=== PATIENT | male | born 1980 | race Caucasian/White ===

== ENCOUNTER 2018-11-05 05:12 | Day surgery (SDC) | payer OTHER ==
[~2018-11-05] VITALS: Ht 180.3 cm; Wt 89.8 kg
[2018-11-05] MEDS ORDERED: NAPROSYN500 MG PO (06:05)
[2018-11-05] MEDS ORDERED: BAYER CHEWABLE81 MG PO (06:05)
[2018-11-05] MEDS ORDERED: LIPITOR40 MG (06:06)
[2018-11-05] MEDS ORDERED: COREG 3.1253.125 MG PO (06:07)
[2018-11-05] MEDS ORDERED: CYMBALTA20 MG PO (06:07)
[2018-11-05] MEDS ORDERED: KEPPRA1000 MG PO (06:08)
[2018-11-05 06:33] LABS: MCH 30.4 pg (26.0-34.0); MCHC 34.2 g/dL (31.0-37.0); MCV 88.8 fL (80.0-100.0); MEAN PLATELET VOLUME 9.2 fL (7.4-10.4); PLATELET COUNT 237 10x3/uL (130-400); RBC 4.28 10x6/uL (4.20-6.10); RDW 14.5 % (11.5-14.5); WBC 5.8 10x3/uL (4.8-10.8)
[2018-11-05 06:41] LABS: CALC OSMOLALITY 286 mosm/kg (275-300); CALCIUM 8.2 mg/dL (8.5-10.1); CARBON DIOXIDE 23.1 mmol/L (21.0-32.0); CHLORIDE - SERUM 109 mmol/L (98-107); CREATININE - SERUM 0.7 mg/dL (0.6-1.3); GLUCOSE 89 mg/dL (74-106); POTASSIUM - SERUM 3.6 mmol/L (3.5-5.1); SODIUM 145 mmol/L (136-145); UREA NITROGEN 10 mg/dL (7-18); eGFR NON AFRICAN AMERICAN > 90 mL/min (90-120)
[2018-11-05 06:45] VITALS: BP 165/106; Ht 180.3 cm; Wt 89.8 kg
[2018-11-05 09:13] LABS: EOSINOPHILS 3 % (0-7); LYMPHOCYTES 50 % (15-50); MONOCYTES 10 % (2-11); NEUTROPHILS 33 % (40-80); PLATELET ESTIMATE NORMAL
[2018-11-05 09:14] LABS: ROULEAUX OCC
--- NOTE | 2018-11-05 10:32 | NUR ---
1010 RIGHT ARM IN SLING.
--- NOTE | 2018-11-05 10:58 | OP ---
PATIENT NAME: ZANDER BELLO MEDICAL RECORD: [id number] :76 LOCATION:[facility] AD[facility]ION DATE: SURGEON: ZANDER DAWSON DO DATE OF OPERATION: 11/05/2018 PROCEDURE PERFORMED: Right shoulder arthroscopy with subacromial decompression, distal clavicle excision, biceps tenodesis, rotator cuff repair, and capsular shift. PREOPERATIVE DIAGNOSES: Right shoulder instability, partial rotator cuff tear, SLAP tear, subacromial impingement, AC joint arthritis. POSTOPERATIVE DIAGNOSES: Right shoulder instability, partial rotator cuff tear, SLAP tear, subacromial impingement, AC joint arthritis. INDICATIONS: Mr. Bello is a 38-year-old inmate who said his right shoulder keeps going "in and out." He said it comes out easily anything overhead or reaches back. He had an MRI done, which did show a partial rotator cuff tear and a SLAP tear. Due to his history of it going in and out, I told him I would do a capsular shift, although not a big one if I did not see that there was a Bankart lesion, soft tissue or bony. There was no obvious one on the MRI, but I would look at his rotator cuff. If it were more than 50% torn, I would repair it as well as do a biceps tenodesis and distal clavicle excision and subacromial decompression. He is aware of the risks including infection, bleeding, continued pain, continued instability, need for further surgery, blood clots, and even and he signed the consent. SURGEON: Zander Dawson DO DESCRIPTION OF PROCEDURE: The patient was given a block by anesthesia in the preoperative area. He was taken to the operative suite, laid in the left lateral decubitus position with an axillary roll and axilla. He was given 900 mg of clindamycin. The right shoulder was then prepped and draped in sterile fashion. Timeout was performed, everyone was in agreement as to the correct side, site, patient and procedure. Once that was completed, the procedure began with insufflating the shoulder joint with an 18-gauge spinal needle through the posterior portal and 60 mL of normal saline. This was then removed. The 11-blade scalpel was used to establish the posterior portal. Trocar was then entered into the shoulder joint. Two anterior portals were then established to pass the labral tape through. The biceps tenodesis was done also noting the SLAP tear as well as the partial articular-sided rotator cuff tear. It was more than 50% torn. The subscapularis looked good and the cartilage looked good and no loose bodies in the inferior gutter. There was no obvious Bankart lesion, but the humerus was subluxed anteriorly. The lasso device was then brought in. I went through the anterior capsule and then through the labrum underneath between the space between the glenoid. This was then fished out through the other portal then labral tape was lassoed in through the lasso. The drill was then brought in through the portal and a hole was drilled for the PushLock. The labral tape was then put on the PushLock and PushLock was entered into the hole that had been drilled pulling up the capsule nicely. The subacromial space was then entered. Decompression was done as well as a distal clavicle excision and acromioplasty. There was no full thickness seen on the bursal side; however, it was more than 50% on the articular side. The scope was then entered back into the articular side into the joint and the tear was marked. The incision was then made over the lateral shoulder where a portal had been established OPERATIVE REPORT [id number] ZANDER BELLO with an 18-gauge spinal needle and 11-blade scalpel and dissection was made down to the tear. The tear was then exposed. A single anchor was used with FiberTape through anteriorly and posteriorly pulling over with a nice repair to a lateral row anchor. This was then cut. I confirmed to have a good repair on it and then attention was drawn to the anterior humerus where an incision was made. Careful dissection was made down to the long head of the biceps tendon. This was removed and whipstitched and then a single button was placed into the humerus and cinched down. I cinched down the long head of the bicep tendon and tied down and then a free needle was used to go back through the tendon and this was tied down on top of that. The excess tendon and suture were cut at that time. The wound was thoroughly irrigated as well as the open rotator cuff repair site. These were then closed with 2-0 Vicryl in inverted interrupted fashion, 4-0 Monocryl ran on the skin and then 4-0 Monocryl in inverted interrupted fashion on the portal sites, the 2 anterior and posterior wounds. Dermabond was then placed on all the incisions and a Telfa and Tegaderm were placed over them. He was awakened and taken to recovery in stable condition. BLOOD LOSS: Minimal. COMPLICATIONS: None. TRANSINT:[id number] Voice Confirmation ID: [id number] DOCUMENT ID: [id number] ZANDER DAWSON DO at 1058 CC: [id number] DICTATION DATE: 11/05/18919 TANK TENDER: 11/05/18947 [id number] [place] [address]
--- NOTE | 2018-11-05 12:13 | NUR ---
1118 UP TO BR WITH MINIMAL ASSISTANCE. VOIDED WITHOUT DIFFICULTY
--- NOTE | 2018-11-05 12:13 | NUR ---
1115 IV DC'D. CATHETER TIP INTACT. NO BLEEDING AT SITE. BANDAID APPLIED.
== END 2018-11-05 11:26 | disposition home or self-care (01) ==
LOC: D.OPS 05:12
PROVIDERS: Anesthesiology; ATTEND Orthopaedic Surgery
DX: M25.311 Other instability, right shoulder (principal); M75.101 Unspecified rotator cuff tear or rupture of right shoulder, not specified as traumatic; S43.431A Superior glenoid labrum lesion of right shoulder, initial encounter; X58.XXXA Exposure to other specified factors, initial encounter; M75.41 Impingement syndrome of right shoulder; M13.811 Other specified arthritis, right shoulder

== ENCOUNTER 2019-08-19 05:32 | Day surgery (SDC) | payer OTHER ==
[~2019-08-19] VITALS: Ht 180.3 cm; Wt 97.5 kg
[~2019-08-19 05:32] MED LIST: BAYER CHEWABLE81 MG PO; COREG 3.1253.125 MG PO; CYMBALTA20 MG PO; KEPPRA1000 MG PO; LIPITOR40 MG; NAPROSYN500 MG PO
[2019-08-19 06:10] VITALS: BP 145/94; Ht 180.3 cm; Wt 97.5 kg
[2019-08-19 06:16] LABS: BASOPHILS 0.3 % (0-2); EOSINOPHILS 3.5 % (0-7); HEMATOCRIT 41.7 % (42.0-54.0); HEMOGLOBIN 14.1 g/dL (13.5-17.5); IMMATURE GRANULOCYTES 0.3 % (0-5); LYMPHOCYTES 34.2 % (15-50); MCH 30.1 pg (26.0-34.0); MCHC 33.8 g/dL (31.0-37.0); MCV 89.1 fL (80.0-100.0); MEAN PLATELET VOLUME 8.9 fL (7.4-10.4); MONOCYTES 5.4 % (2-11); NEUTROPHILS 56.3 % (40-80); PLATELET COUNT 242 10x3/uL (130-400); RBC 4.68 10x6/uL (4.20-6.10); RDW 12.6 % (11.5-14.5); WBC 6.4 10x3/uL (4.8-10.8)
--- NOTE | 2019-08-19 06:21 | NUR ---
dr lee notified and reviewed pt's behavior and assessment results. pt is a low risk per dr lee, dr lee stated to give resources to pt at time of discharge. no further orders at this time. resources reviewed with pt and he verbalized understanding.
[2019-08-19 06:25] LABS: CALC OSMOLALITY 280 mosm/kg (275-300); CALCIUM 8.2 mg/dL (8.5-10.1); CARBON DIOXIDE 23.2 mmol/L (21.0-32.0); CHLORIDE - SERUM 107 mmol/L (98-107); CREATININE - SERUM 1.1 mg/dL (0.6-1.3); GLUCOSE 93 mg/dL (74-106); POTASSIUM - SERUM 3.6 mmol/L (3.5-5.1); SODIUM 141 mmol/L (136-145); UREA NITROGEN 12 mg/dL (7-18); eGFR NON AFRICAN AMERICAN 78 mL/min (90-120)
[2019-08-19 06:48] LABS: APTT 37.2 SECONDS (22.8-39.4); INR 0.92 (0.85-1.17); PROTIME 12.4 SECONDS (11.6-15.0)
[2019-08-19] MEDS ORDERED: COREG25 MG PO (06:51)
[2019-08-19] MEDS ORDERED: NORVASC10 MG PO (06:52)
[2019-08-19] MEDS ORDERED: BUSPAR10 MG PO (06:53)
[2019-08-19] MEDS ORDERED: TOPAMAX50 MG PO (06:54)
[2019-08-19] MEDS ORDERED: PRINIVIL10 MG PO (06:54)
--- NOTE | 2019-08-19 06:57 | NUR ---
PT ARRIVED LATE. NEEDED LAB DRAWS AND XRAY ON ARRIVAL. NEEDED H AND P.
[2019-08-19] MEDS ORDERED: PERCOCET 10-321 EAC1 PO (08:28)
--- NOTE | 2019-08-19 14:51 | NUR ---
1000 IV DC'D. CATHETER TIP INTACT. NO BLEEDING AT SITE. BANDAID APPLIED. DISCHARGE INSTRUCTIONS GIVEN TO PT WHO VOICES UNDERSTANDING OF INSTRUCTIONS. PT NOT AWARE OF FOLLOWUP APPOINTMENT DATE AND TIME. DISCHARGE PACKET GIVEN TO [facility].
--- NOTE | 2019-08-23 07:09 | OP ---
PATIENT NAME: ZANDER BELLO MEDICAL RECORD: [id number] :76 LOCATION:[facility] AD[facility]ION DATE: SURGEON: ZANDER DAWSON DO DATE OF OPERATION: 08/19/2019 PROCEDURE PERFORMED: Right rotator cuff repair. PREOPERATIVE DIAGNOSIS: Right recurrent rotator cuff tear. POSTOPERATIVE DIAGNOSIS: Right recurrent rotator cuff tear. INDICATIONS: Mr. Bello is a 39-year-old inmate who had a right labral repair with a small rotator cuff repair done in October. He said that he was "doing his own therapy and popped his shoulder." We got the MRI with MR arthrogram that showed a recurrent rotator cuff tear of the supraspinatus tendon. He has been dealing with this for quite some time and wanted something done surgically as he had lost strength. He was informed of the risks including infection, bleeding, damage to nerves and vessels, need for further surgery, strict following of the protocol would help him not retear it and that we would be watching him in with close eye due to the fact that he has admitted that it is hard to get regular physical therapy and we hope that he would be able to do that. He was aware of all that and aware of the risks including frozen shoulder, continued pain and he signed the consent. SURGEON: Zander Dawson DO DESCRIPTION OF PROCEDURE: The patient was taken to operative suite. After given a block by anesthesia in the preoperative area, placed in the left lateral decubitus position with right shoulder up. He was then sedated and LMA was placed. He was given 900 mg of clindamycin preoperatively. Right shoulder was then prepped and draped in sterile fashion. Timeout was performed, everyone was in agreeance with the correct side, site, patient and procedure. We then began by inflating the shoulder joint through an 18-gauge spinal needle through the posterior portal with 60 mL of normal saline. I then established a posterior portal with a #11 blade scalpel and trocar entered the joint. I then entered the camera in the joint. The labral repair was in good status and the humeral head was well centered in the joint. The supraspinatus tendon, however, had retracted approximately 1 cm. There was a tear seen on the anterior fibers extending posteriorly almost to the footprint of the infraspinatus. This was noted and then went to the subacromial space, noting the same type of tear. There was some small remaining fibers left on the bursal side; however, they were very thin. We then took the camera out and opened the shoulder over the lateral portal that was there previously and made the blunt dissection down with [employer]'s down to the rotator cuff tear. We then put 2 medial row anchors and 8 suture tapes through and pulled that over in crossing fashion over to 2 lateral rows anchors. I then put on the Regeneten patch and stapled it into place. We then irrigated the site and the site was closed by Jag Gramajo, certified surgical nurse practitioner with 2-0 Vicryl in an inverted interrupted fashion, 4-0 Monocryl ran on the skin. Dermabond glue on the skin. He was then awakened and taken to recovery in stable condition. BLOOD LOSS: Minimal. COMPLICATIONS: None. OPERATIVE REPORT [id number] ZANDER BELLO TRANSINT:[id number] Voice Confirmation ID: [id number] DOCUMENT ID: [id number] ZANDER DAWSON DO at 0709 CC: [id number] DICTATION DATE: 08/19/19 0834 AIR CONDITIONING INSTALLER: 08/19/19 1428 [facility] 08/19/19 [facility] [address] [place] [address]
== END 2019-08-19 10:37 | disposition home or self-care (01) ==
LOC: D.OPS 05:32
PROVIDERS: Anesthesiology; ATTEND Orthopaedic Surgery
DX: M75.121 Complete rotator cuff tear or rupture of right shoulder, not specified as traumatic (principal)